=== PATIENT | male | born 1980 | race Two or more races ===

== ENCOUNTER 2021-02-01 11:01 | Emergency (ER) | payer OTHER, SELFPAY ==
--- NOTE | ~2021-02-01 | CT_ITS ---
EXAMINATION: CT ABDOMEN AND PELVIS WITH CONTRAST CLINICAL INFORMATION: Left lower quadrant pain, nausea, vomiting, diarrhea for 6 days. COMPARISON: None TECHNIQUE: Multidetector volumetric images were obtained from the superior aspect of the liver through the pubic symphysis following administration 85 mL of Omnipaque 350 intravenous contrast. Sagittal and coronal reformatted images were obtained on the technologist's workstation. Oral contrast: No This CT examination was performed using dose optimization techniques as appropriate, variously including the following: *Automated exposure control *Adjustment of mA and/or kV according to patient size (this includes techniques or standardized protocols for targeted exams where dose is matched to indication/reason for exam; i.e. extremities or head) *Use of iterative reconstruction technique DLP: 508 mGy-cm FINDINGS: LUNG BASES: The visualized lung bases are unremarkable. LIVER, GALLBLADDER, AND BILIARY TREE: Liver is normal in size and normal in attenuation. The liver surface is smooth. There is no intrahepatic ductal dilatation. There are 4 small hypodense lesions in the liver all under 1 cm and too small to characterize and likely tiny cysts. There are some grouped benign coarse calcifications in the left lobe segment 4A without associated mass or APRIL lesion. The gallbladder is unremarkable with no evidence of radiopaque gallstones, gallbladder wall thickening, or obvious pericholecystic inflammatory changes. PANCREAS: Unremarkable. SPLEEN: Unremarkable. ADRENAL GLANDS: The kidneys are normal in size and smooth in contour and enhance symmetrically. There is no hydroureter or perinephric stranding or visible calculi. There are likely parapelvic cysts within the left renal sinus which limits assessment for fullness left collecting system. No right hydronephrosis or caliectasis. KIDNEYS AND URETERS: The kidneys are normal in size, shape, and attenuation. No hydronephrosis, hydroureter, or calculi seen. No perinephric stranding. BLADDER: Unremarkable. GASTROINTESTINAL TRACT: There is no bowel obstruction or focal inflammatory changes in the bowel or mesentery. A small normal appendix is questionably visualized. There are no inflammatory changes around cecum or terminal ileum. There is no ascites or fluid collection. No pneumatosis or free air. ABDOMINAL WALL: No significant hernia is appreciated. LYMPH NODES: No lymphadenopathy. VASCULAR: Unremarkable. PELVIC VISCERA: Prostatic calcifications. Symmetric seminal vesicles. Pelvic side wall soft tissues unremarkable. OSSEOUS STRUCTURES: Unremarkable. CT/CT abdomen pelvis w con IMPRESSION: 1. No bowel obstruction or focal inflammatory changes in bowel or mesentery. 2. Probable diffuse parapelvic cysts left kidney. No hydroureter, calculi, or perinephric stranding (a KUB could be performed to confirm normal collecting system during the excretion of CT contrast). 3. Pancreas unremarkable. No cholelithiasis or ductal dilatation.
[2021-02-01 11:47] VITALS: BP 135/78; PULSE 86; RESP 16; TEMP 36.6; O2SAT 98; BMI 25.6
[2021-02-01 14:11] VITALS: RESP 16
[2021-02-01 14:25] LABS: Glucose Urine UA NEG (NEG); Leukocyte Esterase Urine NEG (NEG); Nitrite Urine NEG (NEG); Specific Gravity - Urine >= 1.030 (1.005-1.025); Urine Blood NEG (NEG); Urine Ketones NEG (NEG); Urine Protein NEG (NEG-TRACE)
[2021-02-01 14:26] LABS: Appearance Urine CLEAR; Color Urine YELLOW
[2021-02-01 14:31] LABS: Hematocrit 47.1 % (42-52); Hemoglobin 14.9 g/dl (14.0-18.0); Mean Corpuscular HGB Conc 31.6 g/dl (31.0-36.0); Mean Corpuscular Hemoglobin 27.2 pg (27.0-33.0); Mean Corpuscular Volume 85.9 fL (80-98); Mean Platelet Volume 13.4 fL (9.4-12.4); PLT CLUMP 1; Red Blood Count 5.48 X10*6/uL (4.60-5.80); Red Cell Distribution Width 12.2 % (11.0-16.0); WBC ABN SCTR FOR CBC 1
[2021-02-01] MEDS: 0.9 % Sodium Chloride 1,000 ML 999 ML IVCONT (14:44)
[2021-02-01 14:54] VITALS: BP 120/84; PULSE 66; RESP 16
[2021-02-01 14:59] LABS: Alanine Aminotransferase 19 U/L (0-40); Albumin Level 4.7 g/dL (3.5-5.0); Alkaline Phosphatase 54 U/L (39-117); Anion Gap 12 (12-20); Aspartate Amino Transferase 25 U/L (5-37); Bilirubin Direct 0.4 mg/dL (0.0-0.5); Bilirubin Total 1.2 mg/dL (0.0-1.0); Blood Urea Nitrogen 11 mg/dL (9-16); Calcium 9.7 mg/dL (8.4-10.2); Carbon Dioxide 28 mmol/L (22-29); Chloride 103 mmol/L (96-108); Creatinine Clr Calc Pharmacy 93.6; Estimated Glomerular Filt Rate > 60; Glucose Random 77 mg/dL (60-115); Potassium 4.1 mmol/L (3.3-5.1); Sodium 139 mmol/L (135-145); Total Protein 7.8 g/dL (6.5-8.0)
[2021-02-01 15:12] LABS: Lipase 83 U/L (8-78)
[2021-02-01 15:20] LABS: Band Neutrophils Percent 0 % (3-5); Basophils Percent Manual 1 % (0-1); Eosinophils Percent Manual 3 % (0-4); Large Platelet PRESENT; Lymphocytes Percent Manual 32 % (20-40); Monocytes Percent Manual 2 % (2-11); Neutrophils Percent Manual 62 % (45-73); Platelet Estimate NORMAL (NORMAL); Platelet Morphology Comment NOTED; RBC Morphology NORMAL
[2021-02-01 15:21] LABS: Basophils Abs Manual 0.1 X10*3/uL (0.0-0.3); Eosinophils Absolute Manual 0.4 X10*3/UL (0.0-0.8); Lymphocytes Absolute Manual 3.8 X10*3/uL (0.6-4.8); Monocytes Absolute Manual 0.2 X10*3/uL (0.0-1.2); Neutrophils Absolute Manual 7.3 X10*3/uL (2.2-7.9); Platelet Count 181 X10*3/uL (160-400); White Blood Count 11.8 X10*3/uL (4.8-10.8)
--- NOTE | 2021-02-01 15:45 | ED.ABDPAIN ---
HPI - Abdominal Pain General Chief Complaint: Abdominal Pain Stated Complaint: n/v Time Seen by Provider: 02/01/21 14:05 Source: patient Mode of arrival: ambulatory Limitations: no limitations History of Present Illness HPI narrative: 40-year-old male with a past medical history of seizures and thyroid cancer status post thyroidectomy presenting to the ED with complaints of 6 days of intermittent diffuse abdominal pain with associated nausea/vomiting and loose stools. Patient also reports feeling tired, fatigue and subjective fevers. Denies any measured fevers, dizziness, lightheadedness, neck pain/stiffness, bloody or black emesis, chest pain, shortness of breath, dyspnea on exertion, orthopnea, palpitations, back pain, dysuria, hematuria, abnormal penile discharge, black or bloody stools, constipation, recent travel, bad food exposure or sick contacts. Patient denies recent surgery, antibiotic usage or injury. Patient denies any other symptoms complaints or concerns at this time. MD elicited complaint: abdominal pain Pertinent past history: none Onset (ago): day(s) (Intermittently for the past 6 days worse today) Pain Consistency: intermittent Location: diffuse Severity: moderate Radiation: none Migration to: no migration Exacerbating factors: eating Relieving factors: nothing Associated symptoms: nausea, vomiting, diarrhea, fever and chills Related Data Previous Rx's Medication Instructions Recorded naproxen 500 mg PO BID PRN #10 tab 02/01/21 ondansetron HCl [Zofran] 4 mg PO Q8H PRN #14 tab 02/01/21 oxycodone 5 mg PO BID PRN #10 tab 02/01/21 Allergies Allergy/AdvReac Type Severity Reaction Status Date / Time No Known Allergies Allergy Unverified 05/11/20 17:04 Review of Systems Review of Systems Constitutional : Positive subjective fevers/fatigue/malaise, No Weight loss, No Chills, No Night Sweats ENT/Mouth: No ear pain, No sore throat, No Difficulty swallowing Cardiovascular : No Chest Pain, No SOB, No Dyspnea on Exertion, No Orthopnea, NoEdema, No Palpitations Respiratory : No Cough, No Sputum, No Wheezing, No Dyspnea Gastrointestinal : Positive nausea/vomiting/abdominal pain/diarrhea, No blood streaked emesis, No coffee-ground emesis, No gross hematemesis, No blood streak stool, No gross hematochezia, No Melena Genitourinary : No irregular bleeding, No Dysuria, No Urinary Frequency, No Hematuria,No Urinary Incontinence, No Urgency, No Flank Pain Musculoskeletal : No joint pain, No Myalgias, No Joint Swelling Skin : No Skin Lesions, No rash Neuro : No Weakness, No Numbness, No Paresthesias, No Loss of Consciousness, NoDizziness, No Headache Psych : No Social Issues, Heme/Lymph: No Bruising, No Bleeding,No Lymphadenopathy Endocrine : No Polyuria, No Polydipsia, No Temperature Intolerance Yes all other systems are reviewed and are negative Physical Exam Vital Signs: Vital Signs: Last Vital Signs Temp 97.8 F 02/01/21 11:47 Pulse 66 02/01/21 14:54 Resp 16 02/01/21 14:54 BP 120/84 02/01/21 14:54 Pulse Ox 98 02/01/21 11:47 Body Mass Index 25.6 vital signs have been reviewed as normal and appeared to be correct. Blood pressure normal. Heart rate normal. Respiration rate normal. Temperature normal. Oxygen saturation normal. Appearance: Alert. Oriented X3. No acute distress. Head: Normal external exam. Normocephalic. Eyes: PERRLA. EOMI. Conjunctiva and sclera normal. Eyelids normal. ENT: Pharynx normal. Uvula midline. Moist mucous membranes. Neck: Normal inspection. Neck supple. FROM. No adenopathy. No meningeal signs. CVS: Normal heart rate and rhythm. Heart sound normal. No murmurs noted. Pulses normal throughout. Respiratory: No respiratory distress. Painless inspiration. Breath sounds normal. No wheezes/rales/rhonchi noted. Chest nontender. No accessory muscle usage noted or decreased air movement noted. Abdomen: Soft and mild tenderness diffusely with guarding. Nondistended. No rigidity. Bowel sounds normal in all 4 quadrants. No distention noted. No organomegaly noted. No visible injury noted. No rebound tenderness. Negative Rovsing sign. Negative obturator's sign. Negative psoas sign. Negative Thrasher sign. Back: No CVA tenderness. Full range of motion noted. Skin: Skin warm and dry. Normal skin color. Normal skin turgor. No rashes/lesions/lacerations noted. Extremities: Extremities exhibit normal range of motion. Extremities nontender. Neuro: Oriented X 3. No motor deficit. No sensory deficit. Reflexes normal. Normal steady gait. Course Course Course Narrative: 14:25pm - 40-year-old male with a past medical history of seizures and thyroid cancer status post thyroidectomy presenting to the ED with complaints of 6 days of intermittent diffuse abdominal pain with associated nausea/vomiting and loose stools. Patient also reports feeling tired, fatigue and subjective fevers. Plan: Labs, CT scan of abdomen and pelvis with IV contrast, UA, COVID/RSV/flu swab. Provide a L of IV fluids and re-evaluate. Reevaluation(s) Reevaluation #1: - white blood cell count 04584. Total bilirubin 1.2. Lipase 83. All other labs within normal limits. UA within normal limits no evidence of UTI. COVID/RSV/flu negative. CT scan of abdomen and pelvis with IV contrast revealed multiple liver cysts and renal cyst otherwise no other acute processes were noted. Therefore I printed out the CT scan results and gave a copy to the patient explained to him that he needs to follow up with GI and Renal for his cyst and to follow up if any new or worsening symptoms. Patient understands agrees with this plan. Time: 17:11 [facility] - Abdominal Pain Medical Records Attestation: I reviewed the patient's medical records. Lab Data Attestation: I reviewed the patient's lab results. Result diagrams: 02/01/21 14:06 02/01/21 14:06 Labs: Lab Results 02/01/21 02/01/21 02/01/21 Range/Units 14:06 14:06 14:15 WBC 11.8 H (4.8-10.8) X10*3/uL RBC 5.48 (4.60-5.80) X10*6/uL Hgb 14.9 (14.0-18.0) g/dl Hct 47.1 (42-52) % MCV 85.9 (80-98) fL MCH 27.2 (27.0-33.0) pg MCHC 31.6 (31.0-36.0) g/dl RDW 12.2 (11.0-16.0) % Plt Count 181 (160-400) X10*3/uL MPV 13.4 H (9.4-12.4) fL Immature Gran % (Auto) Cancelled Neut % (Auto) Cancelled Lymph % (Auto) Cancelled [place] % (Auto) Cancelled Eos % (Auto) Cancelled Baso % (Auto) Cancelled Lymph # (Auto) Cancelled [place] # (Auto) Cancelled Eos # (Auto) Cancelled Baso # (Auto) Cancelled Abs Immat Gran (auto) Cancelled Absolute Neuts (auto) Cancelled Absolute Nucleated RBC 0.000 (0.0-0.012) X10*3/uL Nucleated RBC % (auto) 0.0 (0.0-0.2) /100WBC Neutrophils % (Manual) 62 (45-73) % Band Neutrophils % 0 L (3-5) % Lymphocytes % (Manual) 32 (20-40) % Monocytes % (Manual) 2 (2-11) % Eosinophils % (Manual) 3 (0-4) % Basophils % (Manual) 1 (0-1) % Abs Neuts (Manual) 7.3 (2.2-7.9) X10*3/uL Lymphocytes # (Manual) 3.8 (0.6-4.8) X10*3/uL Monocytes # (Manual) 0.2 (0.0-1.2) X10*3/uL Eosinophils # (Manual) 0.4 (0.0-0.8) X10*3/UL Basophils # (Manual) 0.1 (0.0-0.3) X10*3/uL Platelet Estimate NORMAL (NORMAL) Large Platelets PRESENT Plt Morphology Comment NOTED RBC Morphology NORMAL Sodium 139 (135-145) mmol/L Potassium 4.1 (3.3-5.1) mmol/L Chloride 103 (96-108) mmol/L Carbon Dioxide 28 (22-29) mmol/L Anion Gap 12 (12-20) BUN 11 (9-16) mg/dL Creatinine 0.93 (0.5-1.4) mg/dL Estim Creat Clear Calc 93.6 Estimated GFR > 60 Random Glucose 77 (60-115) mg/dL Calcium 9.7 (8.4-10.2) mg/dL Total Bilirubin 1.2 H (0.0-1.0) mg/dL Direct Bilirubin 0.4 (0.0-0.5) mg/dL AST 25 (5-37) U/L ALT 19 (0-40) U/L Alkaline Phosphatase 54 (39-117) U/L Total Protein 7.8 (6.5-8.0) g/dL Albumin 4.7 (3.5-5.0) g/dL Lipase 83 H (8-78) U/L Urine Color YELLOW Urine Appearance CLEAR Urine pH 6.0 (5.0-8.0) Ur Specific [place] >= 1.030 H (1.005-1.025) Urine Protein NEG (NEG-TRACE) MG/DL Urine Glucose (UA) NEG (NEG) MG/DL Urine Ketones NEG (NEG) MG/DL Urine Blood NEG (NEG) Urine Nitrite NEG (NEG) Ur Leukocyte Esterase NEG (NEG) Coronavirus (PCR) (Negative) Influenza Type A (PCR) (Negative) Influenza Type B (PCR) (Negative) RSV RNA Qual (PCR) (Negative) 02/01/21 Range/Units 14:43 WBC (4.8-10.8) X10*3/uL RBC (4.60-5.80) X10*6/uL Hgb (14.0-18.0) g/dl Hct (42-52) % MCV (80-98) fL MCH (27.0-33.0) pg MCHC (31.0-36.0) g/dl RDW (11.0-16.0) % Plt Count (160-400) X10*3/uL MPV (9.4-12.4) fL Immature Gran % (Auto) Neut % (Auto) Lymph % (Auto) [place] % (Auto) Eos % (Auto) Baso % (Auto) Lymph # (Auto) [place] # (Auto) Eos # (Auto) Baso # (Auto) Abs Immat Gran (auto) Absolute Neuts (auto) Absolute Nucleated RBC (0.0-0.012) X10*3/uL Nucleated RBC % (auto) (0.0-0.2) /100WBC Neutrophils % (Manual) (45-73) % Band Neutrophils % (3-5) % Lymphocytes % (Manual) (20-40) % Monocytes % (Manual) (2-11) % Eosinophils % (Manual) (0-4) % Basophils % (Manual) (0-1) % Abs Neuts (Manual) (2.2-7.9) X10*3/uL Lymphocytes # (Manual) (0.6-4.8) X10*3/uL Monocytes # (Manual) (0.0-1.2) X10*3/uL Eosinophils # (Manual) (0.0-0.8) X10*3/UL Basophils # (Manual) (0.0-0.3) X10*3/uL Platelet Estimate (NORMAL) Large Platelets Plt Morphology Comment RBC Morphology Sodium (135-145) mmol/L Potassium (3.3-5.1) mmol/L Chloride (96-108) mmol/L Carbon Dioxide (22-29) mmol/L Anion Gap (12-20) BUN (9-16) mg/dL Creatinine (0.5-1.4) mg/dL Estim Creat Clear Calc Estimated GFR Random Glucose (60-115) mg/dL Calcium (8.4-10.2) mg/dL Total Bilirubin (0.0-1.0) mg/dL Direct Bilirubin (0.0-0.5) mg/dL AST (5-37) U/L ALT (0-40) U/L Alkaline Phosphatase (39-117) U/L Total Protein (6.5-8.0) g/dL Albumin (3.5-5.0) g/dL Lipase (8-78) U/L Urine Color Urine Appearance Urine pH (5.0-8.0) Ur Specific [place] (1.005-1.025) Urine Protein (NEG-TRACE) MG/DL Urine Glucose (UA) (NEG) MG/DL Urine Ketones (NEG) MG/DL Urine Blood (NEG) Urine Nitrite (NEG) Ur Leukocyte Esterase (NEG) Coronavirus (PCR) NEGATIVE (Negative) Influenza Type A (PCR) NEGATIVE (Negative) Influenza Type B (PCR) NEGATIVE (Negative) RSV RNA Qual (PCR) NEGATIVE (Negative) Imaging Data CT scan of abdomen and pelvis with IV contrast: Attestation: I personally reviewed and interpreted this imaging study as follows: Radiologist's impression: FINDINGS: LUNG BASES: The visualized lung bases are unremarkable. LIVER, GALLBLADDER, AND BILIARY TREE: Liver is normal in size and normal in attenuation. The liver surface is smooth. There is no intrahepatic ductal dilatation. There are 4 small hypodense lesions in the liver all under 1 cm and too small to characterize and likely tiny cysts. There are some grouped benign coarse calcifications in the left lobe segment 4A without associated mass or APRIL lesion. The gallbladder is unremarkable with no evidence of radiopaque gallstones, gallbladder wall thickening, or obvious pericholecystic inflammatory changes. PANCREAS: Unremarkable. SPLEEN: Unremarkable. ADRENAL GLANDS: The kidneys are normal in size and smooth in contour and enhance symmetrically. There is no hydroureter or perinephric stranding or visible calculi. There are likely parapelvic cysts within the left renal sinus which limits assessment for fullness left collecting system. No right hydronephrosis or caliectasis. KIDNEYS AND URETERS: The kidneys are normal in size, shape, and attenuation. No hydronephrosis, hydroureter, or calculi seen. No perinephric stranding. BLADDER: Unremarkable. GASTROINTESTINAL TRACT: There is no bowel obstruction or focal inflammatory changes in the bowel or mesentery. A small normal appendix is questionably visualized. There are no inflammatory changes around cecum or terminal ileum. There is no ascites or fluid collection. No pneumatosis or free air. ABDOMINAL WALL: No significant hernia is appreciated. LYMPH NODES: No lymphadenopathy. VASCULAR: Unremarkable. PELVIC VISCERA: Prostatic calcifications. Symmetric seminal vesicles. Pelvic side wall soft tissues unremarkable. OSSEOUS STRUCTURES: Unremarkable. CT/CT abdomen pelvis w con IMPRESSION: 1. No bowel obstruction or focal inflammatory changes in bowel or mesentery. 2. Probable diffuse parapelvic cysts left kidney. No hydroureter, calculi, or perinephric stranding (a KUB could be performed to confirm normal collecting system during the excretion of CT contrast). 3. Pancreas unremarkable. No cholelithiasis or ductal dilatation. Discharge Plan Discharge Clinical Impression: Abdominal pain, Benign liver cyst, Parapelvic renal cyst Patient Disposition: Home, Self-Care Instructions: Abdominal Pain (ED), Cyst (ED), Kidney Cyst (ED) Prescriptions: New ondansetron HCl [Zofran] 4 mg tablet 4 mg PO Q8H PRN (Reason: nausea and vomiting) Qty: 14 RF: 0 naproxen 500 mg tablet 500 mg PO BID PRN (Reason: pain) Qty: 10 RF: 0 oxycodone 5 mg tablet 5 mg PO BID PRN (Reason: pain) Qty: 10 RF: 0 Referrals: Michael Carlin MD [Physician] - 2 days Erum Naranjo MD [Primary Care Provider] - 2 days Lakhwinder Huerta MD [Physician] - 2 days Lakhwinder Huerta MD [Physician] - 2 days Stand Alone Forms: Work/School Release Print Language: Panamanian [facility] Past Medical History Attestation statement: The following information was validated with the patient. Medical History Seizure Thyroid cancer Surgical History H/O thyroidectomy Social History Social History Alcohol intake: never Patient Tobacco Use Status: Current everyday Tobacco user Use of substances other than those prescribed or required for medical reasons: No Advance Directives: No Advance Directives Information Provided: No
[2021-02-01 15:48] LABS: Influenza A PCR NEGATIVE (Negative); Influenza B PCR NEGATIVE (Negative); Resp Syncy Virus RNA Qual PCR NEGATIVE (Negative); SARS COV2 PCR INHOUSE NEGATIVE (Negative)
[2021-02-01] MEDS: iohexoL 350 MG/ML 100 ML INFUS..BTL IV (15:51)
== END 2021-02-01 17:18 | disposition home or self-care (01) ==
PROVIDERS: Physician Assistant Medical; Emergency Provider Emergency Medicine Emergency Medical Services; PCP Internal Medicine Pulmonary Disease
DX: R10.9 Unspecified abdominal pain (principal); K76.89 Other specified diseases of liver; Q61.01 Congenital single renal cyst; Z20.822 Contact with and (suspected) exposure to COVID-19; R11.2 Nausea with vomiting, unspecified; F17.210 Nicotine dependence, cigarettes, uncomplicated; Z85.850 Personal history of malignant neoplasm of thyroid
CPT/HCPCS: 0241U; 36415; 74177; 80048; 80076; 81003; 83690; 85007; 85027; 96360; 99284; Q9967

== ENCOUNTER 2022-05-10 08:33 | Emergency (ER) | payer MEDICAID, SELFPAY ==
[2022-05-10 08:35] VITALS: BP 133/81; PULSE 115; RESP 19; TEMP 37.4; O2SAT 98; BMI 26.6
[2022-05-10 08:51] LABS: COVID-19 Test Positive (Negative); IDNOW Serial# 16C4AD1C
--- NOTE | 2022-05-10 09:51 | ED_ITS ---
HPI - Fever General Chief Complaint: Fever Stated Complaint: covid like symptoms/exposure to covid Time Seen by Provider: 05/10/22 09:38 Source: patient Mode of arrival: ambulatory Limitations: no limitations History of Present Illness HPI Narrative: 41-year-old male presenting to the ER with complaints of subjective fevers, chills, fatigue, malaise, nasal congestion/rhinorrhea, itchy throat, loss of taste and smell since yesterday worse today. Reports positive COVID exposure. Denies any measured fevers, dizziness, headaches, neck pain/stiffness, trouble swallowing or breathing, ear pain, cough, sputum production, nausea/vomiting/diarrhea constipation, black or bloody stools, rashes, recent travel, dysuria or any other symptoms complaints or concerns at this time. MD elicited complaint: other (Subjective fevers, loss of taste and COVID exposure) Onset (ago): day(s) (Since yesterday) Context: sick contacts Associated symptoms: chills, myalgias, rhinorrhea, nasal congestion and sore throat Treatments prior to arrival fever: none Related Data Previous Rx's Medication Instructions Recorded naproxen 500 mg tablet 500 mg PO BID PRN pain #10 tabs 02/01/21 ondansetron HCl 4 mg tablet 4 mg PO Q8H PRN nausea and 02/01/21 (Zofran) vomiting #14 tabs oxycodone 5 mg tablet 5 mg PO BID PRN pain #10 tabs 02/01/21 cyclobenzaprine 10 mg tablet 10 mg PO Q8H #14 tabs 05/10/22 ibuprofen 800 mg tablet 800 mg PO Q8H PRN pain #14 tabs 05/10/22 Allergies Allergy/AdvReac Type Severity Reaction Status Date / Time No Known Allergies Allergy Unverified 05/11/20 17:04 Review of Systems Review of Systems: Constitutional : + subjective fevers/chills/fatigue/malaise, No Weight loss, No Night Sweats ENT/Mouth : + nasal congestion/rhinorrhea with a itchy throat loss of taste and smell, No Hearing loss, No Ear Pain, No Sinus Pain, No Hoarseness, No Swallowing Difficulty Eyes: No Eye Pain, No Swelling, No Redness, No Foreign Body, No Discharge, No Vision Changes Cardiovascular : No Chest Pain, No SOB, No Dyspnea on Exertion, No Orthopnea, No Edema, No Palpitations Respiratory : No Cough, No Sputum, No Wheezing, No Smoke Exposure, No Dyspnea Gastrointestinal : No Nausea, No Vomiting, No Diarrhea, No Constipation, No abdominal Pain, No Hematochezia, No Melena Genitourinary : no irregular bleeding, No Dysuria, No Urinary Frequency, No Hematuria, No Urinary Incontinence, No Urgency, No Flank Pain, No Urinary Flow Changes, No Hesitancy Musculoskeletal : No joint pain, + Myalgias, No Joint Swelling Skin : No Skin Lesions, No rash Neuro : No Weakness, No Numbness, No Paresthesias, No Loss of Consciousness, No Dizziness, No Headache Psych : No Anxiety/Panic, No Depression, No SI/HI/AH/VH, No Social Issues, Heme/Lymph: No Bruising, No Bleeding,No Lymphadenopathy Endocrine : No Polyuria, No Polydipsia, No Temperature Intolerance Yes all other systems are reviewed and are negative [facility] Past Medical History Attestation statement: The following information was validated with the patient. Source: old records reviewed and nursing notes reviewed Medical History Seizure Thyroid cancer Surgical History H/O thyroidectomy Social History Social History Alcohol intake: never Patient Tobacco Use Status: Current everyday Tobacco user Advance Directives: No Advance Directives Information Provided: Yes Physical Exam Vital Signs: Vital Signs: Last Vital Signs Temp 99.4 F 05/10/22 08:35 Pulse 115 H 05/10/22 08:35 Resp 19 05/10/22 08:35 BP 133/81 05/10/22 08:35 Pulse Ox 98 05/10/22 08:35 O2 Del Method 05/10/22 08:35 BMI result Body Mass Index 26.6 vital signs have been reviewed as normal and appeared to be correct. Blood pressure normal. Heart rate 115. Respiration rate normal. Temperature normal. Oxygen saturation normal. Appearance: Alert. Oriented X3. No acute distress. Head: Normal external exam. Normocephalic. Atraumatic. Eyes: PERRLA. EOMI. Conjunctiva and sclera normal. Eyelids normal. ENT: EAC normal. TM's Normal. Pharynx normal. Uvula midline. Moist mucous membranes. No lesions/ulcerations or masses noted on the tongue. Normal voice. No trismus noted. No drooling noted. No muffled voice noted. Neck: Normal inspection. Neck supple. FROM. No adenopathy. Thyroid Normal. No meningeal signs. No neck mass noted. CVS: Normal heart rate and rhythm. Heart sound normal. Pulses normal throughout. No murmurs/rales/gallops. Respiratory: No respiratory distress. Painless inspiration. Breath sounds normal. No wheezes/rales/rhonchi noted. Chest nontender. No accessory muscle usage noted or decreased air movement noted. Abdomen: Soft and nontender. Nondistended. No guarding. No rigidity. Bowel sounds normal in all 4 quadrants. No distention noted. No organomegaly noted. Back: Full range of motion noted. Skin: Skin warm and dry. Normal skin color. Normal skin turgor. No rashes/lesions/lacerations noted. Extremities:Extremities exhibit normal range of motion and nontender. Neuro: Oriented X 3. No motor deficit. No sensory deficit. Reflexes normal. Normal steady gait. No focal neuro deficits noted. CN's II-XII intact bilaterally? Vascular: + radial pulses/+ 2 distal pedal pulses/+2 dorsalis pedis b/l. Normal cap refill. No cyanosis noted to upper extremity nails and lower extremity toes nails. Course Course Course Narrative: Patient positive for COVID. No additional labs or imaging indicated at this time. Will DC home with symptomatic treatment instructions to self isolate per CDC guidelines and to return if any new or worsening symptoms. Patient understands agrees with this plan. MDM - Fever Medical Records Attestation: I reviewed the patient's medical records. Lab Data Attestation: I reviewed the patient's lab results. Labs: Lab Results 05/10/22 Range/Units 08:40 COVID-19 ([facility]) Positive A (Negative) COVID-19 Clin Com See Note Discharge Plan Discharge Clinical Impression: COVID-19 Patient Disposition: Home, Self-Care Instructions: COVID-19 (Coronavirus Disease 2019) (ED) Prescriptions: New cyclobenzaprine 10 mg tablet 10 mg PO Q8H Qty: 14 0RF ibuprofen 800 mg tablet 800 mg PO Q8H PRN (Reason: pain) Qty: 14 0RF No Action ondansetron HCl [Zofran] 4 mg tablet 4 mg PO Q8H PRN (Reason: nausea and vomiting) Qty: 14 0RF naproxen 500 mg tablet 500 mg PO BID PRN (Reason: pain) Qty: 10 0RF oxycodone 5 mg tablet 5 mg PO BID PRN (Reason: pain) Qty: 10 0RF Referrals: Physician,Unknown J [Primary Care Provider] - 5 days (your pcp) Stand Alone Forms: Work/School Release Print Language: Czech
== END 2022-05-10 10:08 | disposition home or self-care (01) ==
PROVIDERS: Emergency Provider Emergency Medicine Emergency Medical Services
DX: U07.1 COVID-19 (principal); F17.200 Nicotine dependence, unspecified, uncomplicated
CPT/HCPCS: 87635; 99283

== ENCOUNTER 2022-05-15 09:28 | Outpatient (REF) | payer MEDICAID, SELFPAY ==
[2022-05-15 09:54] LABS: COVID-19 Test Positive (Negative); IDNOW Serial# 16C4AD1C
== END 2022-05-15 09:29 | disposition home or self-care (01) ==
LOC: HO.LAB 09:28
PROVIDERS: Visit Provider Internal Medicine
DX: Z20.822 Contact with and (suspected) exposure to COVID-19 (principal)
CPT/HCPCS: 87635; C9803

== ENCOUNTER 2022-08-12 10:29 | Outpatient (REF) | payer MEDICAID, SELFPAY ==
[2022-08-12 11:21] LABS: COVID-19 Test Negative (Negative); IDNOW Serial# 9DB6401D
== END 2022-08-12 10:30 | disposition home or self-care (01) ==
LOC: HO.LAB 10:29
PROVIDERS: Visit Provider Internal Medicine
DX: Z20.822 Contact with and (suspected) exposure to COVID-19 (principal)
CPT/HCPCS: 87635; C9803

== ENCOUNTER 2022-10-17 08:53 | Outpatient (REF) | payer MEDICAID, SELFPAY ==
[2022-10-17 09:22] LABS: COVID-19 Test Negative (Negative); IDNOW Serial# 16C4AD1C
== END 2022-10-17 08:54 | disposition home or self-care (01) ==
LOC: HO.LAB 08:53
PROVIDERS: Visit Provider Internal Medicine
DX: Z20.822 Contact with and (suspected) exposure to COVID-19 (principal)
CPT/HCPCS: 87635; C9803

== ENCOUNTER 2023-01-29 18:00 | Emergency (ER) | payer MEDICAID, SELFPAY ==
[2023-01-29] VITALS (9 sets, daily range): BP systolic 128–143; BP diastolic 88–103; PULSE 74–110; RESP 16–20; TEMP 36.6–36.9; O2SAT 97–99; BMI 26.6
--- NOTE | ~2023-01-29 | XR_ITS ---
EXAMINATION: CHEST 2 VIEWS CLINICAL INFORMATION: pain. COMPARISON: No recent pertinent prior studies are available for comparison. TECHNIQUE: PA and lateral views of the chest obtained. FINDINGS: The lungs are well expanded. No focal infiltrate, effusion, edema, or pneumothorax. Cardiac and mediastinal silhouettes are within normal limits for technique. No acute bony abnormality seen XR/XR chest 2V IMPRESSION: No evidence of acute disease
--- NOTE | 2023-01-29 18:09 | ECG_ITS ---
Test Reason : CP Blood Pressure : / mmHG Vent. Rate : 093 BPM Atrial Rate : 093 BPM P-R Int : 140 ms QRS Dur : 094 ms QT Int : 338 ms P-R-T Axes : 053 012 023 degrees QTc Int : 420 ms Normal sinus rhythm with sinus arrhythmia Incomplete right bundle branch block Borderline ECG When compared with ECG of 25-JUN-2012 18:15, No significant change was found Referred By: Almas Busch Electronically Signed By:Jayme Romero
--- NOTE | 2023-01-29 18:09 | ED.GENADULT ---
HPI - General Adult General Chief complaint: Syncope Stated complaint: passes out after waking up, chest pain, L hand num Time Seen by Provider: 01/29/23 20:17 Source: patient Mode of arrival: ambulatory History of Present Illness HPI narrative: 42-year-old male who presents with history of seizures for which he takes Keppra 500 mg and states this morning he experienced what he describes as an aura where he felt tingling in his left upper extremity and saw some dots and then went and laid down on his bed and patient states that he passed out. He does endorse that when he woke he felt a little drowsy and states that it happened again later on that day. He denies any history of IVDA and denies any drugs at all. Patient states that he has continued to take his seizure medication but also endorses that he is coming up on his 1 year anniversary for the of his son. He feels that this may be contributing to his underlying symptoms. Related Data Previous Rx's Medication Instructions Recorded naproxen 500 mg tablet 500 mg PO BID PRN pain #10 tabs 02/01/21 ondansetron HCl 4 mg tablet 4 mg PO Q8H PRN nausea and 02/01/21 (Zofran) vomiting #14 tabs oxycodone 5 mg tablet 5 mg PO BID PRN pain #10 tabs 02/01/21 cyclobenzaprine 10 mg tablet 10 mg PO Q8H #14 tabs 05/10/22 ibuprofen 800 mg tablet 800 mg PO Q8H PRN pain #14 tabs 05/10/22 levetiracetam 250 mg tablet 250 mg PO BID #60 tabs 01/29/23 (Keppra) Allergies Allergy/AdvReac Type Severity Reaction Status Date / Time No Known Allergies Allergy Verified 01/29/23 18:08 Review of Systems Review of Systems: Pertinent positives and negatives as stated in HPI [facility] Past Medical History Source: nursing notes reviewed Medical History Seizure Thyroid cancer Surgical History H/O thyroidectomy Social History Social History Alcohol intake: never Patient Tobacco Use Status: Current everyday Tobacco user Smoked in Last 30 Days: No Use of substances other than those prescribed or required for medical reasons: No Advance Directives: No Advance Directives Information Provided: Yes Physical Exam ED Vital Signs: Vital Signs - 24 hr 01/29/23 18:08 01/29/23 20:37 01/29/23 20:45 Temperature 98 F 98.5 F Pulse Rate 110 H 81 81 Respiratory Rate 19 20 Blood Pressure 143/103 H 128/88 128/88 Pulse Oximetry 98 97 Oxygen Delivery Method Room Air Room Air 01/29/23 20:47 01/29/23 20:48 01/29/23 21:16 Temperature Pulse Rate 79 85 Respiratory Rate Blood Pressure 133/91 H 132/96 H Pulse Oximetry 99 Oxygen Delivery Method Room Air BMI result Body Mass Index 26.6 VITAL SIGNS: Reviewed. GENERAL: Well developed, well nourished, in no acute distress. HEAD: Normocephalic/atraumatic EYES: PERRLA, EOMI EARS: Ext canals without abnormality NOSE: Nares patent bilateral OROPHARYNX: no oral lesions noted, posterior pharynx clear LUNGS: Normal breath sounds. No adventitious sounds or accessory muscle use. SpO2<99> CARDIOVASCULAR: Regular rate and rhythm without noted murmurs ABDOMEN: Soft, non-tender, non-distended with bowel sounds. MUSCULOSKELETAL: No tenderness, deformities, or effusions noted on gross inspection. EXTREMITIES: No cyanosis, clubbing or edema. SKIN: Inspection of the skin reveals no rashes NEUROLOGIC: Alert and oriented x 4. Strength and sensation to light touch were grossly intact x 4. Course Course Course Narrative: 42-year-old male presents for evaluation of syncope. Patient reports that each day for the last 3 mornings he would wake up have coffee and smoke a cigarette. He states that he passed out every day for the last 3 days. Patient reports the seizure disorder which is maintained on Keppra and has not had a seizure in years. Plan for labs, EKG, old chest x-ray Medical Decision Making Medical Decision Making MDM Narrative: 42-year-old male with history and clinical presentation after review of all investigations as possible partial seizure, although suspect may be secondary to emotional impact of and reversed 3 of son's , but on review of UDS may also be secondary to cocaine use. Patient was strongly discouraged from continue the use of cocaine and encouraged to continue the use of his Keppra, Keppra level has been sent but will be pending and also provided a referral for the patient to follow-up with Dr. Escobedo. There are no focal deficits, there is what is suspected to be a stress leukocytosis as there is no source, patient is afebrile and otherwise appears well. He is discharged with follow-up Differential Diagnosis Please see the discussion above Lab Data Please see the discussion above 01/29/23 18:37 01/29/23 18:37 Labs: Lab Results 01/29/23 01/29/23 01/29/23 Range/Units 18:37 18:37 18:37 WBC 13.1 H (4.8-10.8) X10*3/uL RBC 5.27 (4.60-5.80) X10*6/uL Hgb 14.7 (14.0-18.0) g/dl Hct 44.9 (42.0-52.0) % MCV 85.2 (80.0-98.0) fL MCH 27.9 (27.0-33.0) pg MCHC 32.7 (31.0-36.0) g/dl RDW 12.4 (11.0-16.0) % Plt Count 216 (160-400) X10*3/uL MPV 12.3 (9.4-12.4) fL Immature Gran % (Auto) 0.4 (0.0-0.4) % Neut % (Auto) 68.3 (45-73) % Lymph % (Auto) 23.6 (20-40) % [place] % (Auto) 5.9 (2-11) % Eos % (Auto) 1.4 (0-4) % Baso % (Auto) 0.4 (0-2) % Lymph # (Auto) 3.1 (1.2-4.9) X10*3/uL [place] # (Auto) 0.8 (0.1-1.2) X10*3/uL Eos # (Auto) 0.2 (0.0-0.4) X10*3/uL Baso # (Auto) 0.1 (0.0-0.2) X10*3/uL Abs Immat Gran (auto) 0.05 H (0.00-0.03) X10*3/uL Absolute Neuts (auto) 9.0 H (2.0-8.3) x10*3/uL Absolute Nucleated RBC 0.000 (0.0-0.012) X10*3/uL Nucleated RBC % (auto) 0.0 (0.0-0.2) /100WBC PT (10.0-13.1) SEC INR (0.9-1.1) APTT (26.0-36.4) SEC Sodium 140 (135-145) mmol/L Potassium 3.8 (3.3-5.1) mmol/L Chloride 103 (96-108) mmol/L Carbon Dioxide 26 (22-29) mmol/L Anion Gap 15 (12-20) BUN 12 (9-16) mg/dL Creatinine 1.01 (0.5-1.4) mg/dL Estim Creat Clear Calc 78.2 Estimated GFR > 60 Random Glucose 110 (60-115) mg/dL Calcium 9.9 (8.4-10.2) mg/dL Magnesium 2.0 (1.6-2.6) mg/dL Total Bilirubin 0.8 (0.0-1.0) mg/dL AST 23 (5-37) U/L ALT 22 (0-40) U/L Alkaline Phosphatase 58 (39-117) U/L Troponin I High Sens < 2.7 (<3.5-35.0) ng/L Total Protein 7.8 (6.5-8.0) g/dL Albumin 4.7 (3.5-5.0) g/dL Urine Color Urine Appearance Urine pH (5.0-9.0) Ur Specific [place] (1.005-1.025) Urine Protein (Neg-Trace) mg/dL Urine Glucose (UA) (Negative) mg/dL Urine Ketones (Negative) mg/dL Urine Blood (Negative) Urine Nitrite (Negative) Ur Leukocyte Esterase (Negative) Urine RBC (0-2) /HPF Urine WBC (0-5) /HPF Ur Squamous Epith Cells (0-2) /HPF Urine Bacteria (None Seen) Hyaline Casts (0-2) /LPF Urine Opiates Screen (Not Detect) Urine Fentanyl Screen (Not Detect) Ur Barbiturates Screen (Not Detect) Ur Phencyclidine Scrn (Not Detect) Ur Amphetamines Screen (Not Detect) U Benzodiazepines Scrn (Not Detect) Urine Cocaine Screen (Not Detect) U Marijuana (THC) Screen (Not Detect) 01/29/23 01/29/23 01/29/23 Range/Units 18:37 22:26 22:26 WBC (4.8-10.8) X10*3/uL RBC (4.60-5.80) X10*6/uL Hgb (14.0-18.0) g/dl Hct (42.0-52.0) % MCV (80.0-98.0) fL MCH (27.0-33.0) pg MCHC (31.0-36.0) g/dl RDW (11.0-16.0) % Plt Count (160-400) X10*3/uL MPV (9.4-12.4) fL Immature Gran % (Auto) (0.0-0.4) % Neut % (Auto) (45-73) % Lymph % (Auto) (20-40) % [place] % (Auto) (2-11) % Eos % (Auto) (0-4) % Baso % (Auto) (0-2) % Lymph # (Auto) (1.2-4.9) X10*3/uL [place] # (Auto) (0.1-1.2) X10*3/uL Eos # (Auto) (0.0-0.4) X10*3/uL Baso # (Auto) (0.0-0.2) X10*3/uL Abs Immat Gran (auto) (0.00-0.03) X10*3/uL Absolute Neuts (auto) (2.0-8.3) x10*3/uL Absolute Nucleated RBC (0.0-0.012) X10*3/uL Nucleated RBC % (auto) (0.0-0.2) /100WBC PT 11.0 (10.0-13.1) SEC INR 1.0 (0.9-1.1) APTT 40.5 H (26.0-36.4) SEC Sodium (135-145) mmol/L Potassium (3.3-5.1) mmol/L Chloride (96-108) mmol/L Carbon Dioxide (22-29) mmol/L Anion Gap (12-20) BUN (9-16) mg/dL Creatinine (0.5-1.4) mg/dL Estim Creat Clear Calc Estimated GFR Random Glucose (60-115) mg/dL Calcium (8.4-10.2) mg/dL Magnesium (1.6-2.6) mg/dL Total Bilirubin (0.0-1.0) mg/dL AST (5-37) U/L ALT (0-40) U/L Alkaline Phosphatase (39-117) U/L Troponin I High Sens (<3.5-35.0) ng/L Total Protein (6.5-8.0) g/dL Albumin (3.5-5.0) g/dL Urine Color Yellow Urine Appearance Clear Urine pH 5.5 (5.0-9.0) Ur Specific [place] 1.025 (1.005-1.025) Urine Protein Negative (Neg-Trace) mg/dL Urine Glucose (UA) Negative (Negative) mg/dL Urine Ketones Negative (Negative) mg/dL Urine Blood Negative (Negative) Urine Nitrite Negative (Negative) Ur Leukocyte Esterase Negative (Negative) Urine RBC 0-2 (0-2) /HPF Urine WBC 0-5 (0-5) /HPF Ur Squamous Epith Cells 0-2 (0-2) /HPF Urine Bacteria None Seen (None Seen) Hyaline Casts 0-2 (0-2) /LPF Urine Opiates Screen Not Detected (Not Detect) Urine Fentanyl Screen Not Detected (Not Detect) Ur Barbiturates Screen Not Detected (Not Detect) Ur Phencyclidine Scrn Not Detected (Not Detect) Ur Amphetamines Screen Not Detected (Not Detect) U Benzodiazepines Scrn Not Detected (Not Detect) Urine Cocaine Screen POSITIVE H (Not Detect) U Marijuana (THC) Screen Not Detected (Not Detect) Independent Interpretation I performed an independent interpretation of an: EKG Interpretation: Normal sinus rhythm, HR-93, no STEMI, NC/QRS/QTC is within normal limits. Radiology Impression Radiologist Impression: My interpretation is in agreement with radiology's impression. External Record Review External record reviewed: Prior outpatient labs Discharge Plan Discharge Clinical Impression: Partial seizure, Cocaine use Patient Disposition: Home, Self-Care Instructions: Nonepileptic Seizures (ED) Additional Instructions: 1. Resume all home medications as prescribed 2. I have sent another prescription for your Keppra, I do believe you are out of your medication. Prescriptions: New levetiracetam [Keppra] 250 mg tablet 250 mg PO BID Qty: 60 0RF No Action ondansetron HCl [Zofran] 4 mg tablet 4 mg PO Q8H PRN (Reason: nausea and vomiting) Qty: 14 0RF naproxen 500 mg tablet 500 mg PO BID PRN (Reason: pain) Qty: 10 0RF oxycodone 5 mg tablet 5 mg PO BID PRN (Reason: pain) Qty: 10 0RF cyclobenzaprine 10 mg tablet 10 mg PO Q8H Qty: 14 0RF ibuprofen 800 mg tablet 800 mg PO Q8H PRN (Reason: pain) Qty: 14 0RF Referrals: Rashaun Calderón MD [Primary Care Provider] - Tony Escobedo MD [Physician] -
[2023-01-29 18:41] LABS: MANUAL DIFF FLAG NO
[2023-01-29 18:55] LABS: Basophils Absolute Auto 0.1 X10*3/uL (0.0-0.2); Basophils Percent Auto 0.4 % (0-2); Eosinophils Absolute Auto 0.2 X10*3/uL (0.0-0.4); Eosinophils Percent Auto 1.4 % (0-4); Hematocrit 44.9 % (42.0-52.0); Hemoglobin 14.7 g/dl (14.0-18.0); Imm Gran Abs Auto 0.05 X10*3/uL (0.00-0.03); Imm Gran Pct Auto 0.4 % (0.0-0.4); Lymphocytes Absolute Auto 3.1 X10*3/uL (1.2-4.9); Lymphocytes Percent Auto 23.6 % (20-40); Mean Corpuscular HGB Conc 32.7 g/dl (31.0-36.0); Mean Corpuscular Hemoglobin 27.9 pg (27.0-33.0); Mean Corpuscular Volume 85.2 fL (80.0-98.0); Mean Platelet Volume 12.3 fL (9.4-12.4); Monocytes Absolute Auto 0.8 X10*3/uL (0.1-1.2); Monocytes Percent Auto 5.9 % (2-11); Neutrophils Percent Auto 68.3 % (45-73); Platelet Count 216 X10*3/uL (160-400); Red Blood Count 5.27 X10*6/uL (4.60-5.80); Red Cell Distribution Width 12.4 % (11.0-16.0); White Blood Count 13.1 X10*3/uL (4.8-10.8)
[2023-01-29 18:57] LABS: Partial Thromboplastin Time 40.5 SEC (26.0-36.4)
[2023-01-29 19:01] LABS: Alanine Aminotransferase 22 U/L (0-40); Albumin Level 4.7 g/dL (3.5-5.0); Alkaline Phosphatase 58 U/L (39-117); Anion Gap 15 (12-20); Aspartate Amino Transferase 23 U/L (5-37); Bilirubin Total 0.8 mg/dL (0.0-1.0); Blood Urea Nitrogen 12 mg/dL (9-16); Calcium 9.9 mg/dL (8.4-10.2); Carbon Dioxide 26 mmol/L (22-29); Chloride 103 mmol/L (96-108); Creatinine Clr Calc Pharmacy 78.2; Estimated Glomerular Filt Rate > 60; Glucose Random 110 mg/dL (60-115); Potassium 3.8 mmol/L (3.3-5.1); Sodium 140 mmol/L (135-145); Total Protein 7.8 g/dL (6.5-8.0)
[2023-01-29 19:10] LABS: Troponin-I High Sensitivity < 2.7 ng/L (<3.5-35.0)
--- NOTE | 2023-01-29 21:36 | PC.NURSE ---
Patient in bed with eyes closed patient vitals are stable patient have no pain patient vitals are stable patient will continue to be monitored for safety patient was concerned about food doctor was notified patient is not able to eat at this time patient encouraged to give a urine specimen
[2023-01-29 22:36] LABS: Appearance Urine Clear; Color Urine Yellow; Glucose Urine UA Negative (Negative); Leukocyte Esterase Urine Negative (Negative); Nitrite Urine Negative (Negative); PH 5.5 (5.0-9.0); Specific Gravity - Urine 1.025 (1.005-1.025); Urine Blood Negative (Negative); Urine Ketones Negative (Negative); Urine Protein Negative (Neg-Trace)
[2023-01-29 22:41] LABS: Bacteria Urine None Seen (None Seen); Hyaline Casts Urine 0-2 /LPF (0-2); RBC Urine 0-2 /HPF (0-2); Squamous Epithelial Cell Urine 0-2 /HPF (0-2); WBC Urine 0-5 /HPF (0-5)
[2023-01-29 22:55] LABS: Amphetamine Screen Urine Not Detected (Not Detect); Barbiturates, Urine Not Detected (Not Detect); Benzodiazepines Screen Urine Not Detected (Not Detect); Cannabinoid Screen Urine Not Detected (Not Detect); Cocaine Screen Urine POSITIVE (Not Detect); Fentanyl, urine Not Detected (Not Detect); Opiate Screen Urine Not Detected (Not Detect); Phencyclidine Screen Urine Not Detected (Not Detect)
[2023-01-29 23:44] LABS: Thyroid Stimulating Hormone 0.41 uIU/mL (0.32-4.0)
[2023-01-31 04:28] LABS: Prolactin 4.7 ng/mL (2.0-18.0)
[2023-02-02 19:32] LABS: Levetiracetam Keppra <2.0 mcg/mL (6.0-46.0)
== END 2023-01-29 23:57 | disposition home or self-care (01) ==
PROVIDERS: Physician Assistant; Emergency Provider Student in an Organized Health Care Education/Training Program; PCP Internal Medicine
DX: R56.9 Unspecified convulsions (principal); F14.90 Cocaine use, unspecified, uncomplicated; R55 Syncope and collapse; Z79.899 Other long term (current) drug therapy
CPT/HCPCS: 36415; 71046; 80053; 80177; 80307; 81001; 83735; 84146; 84443; 84484; 85025; 85610; 85730; 93005; 99283; 99284; 99285

== ENCOUNTER 2023-07-02 16:48 | Emergency (ER) | payer MEDICAID, SELFPAY ==
[2023-07-02 17:40] VITALS: BP 148/88; PULSE 91; RESP 18; TEMP 36.8; O2SAT 100; BMI 31.2
--- NOTE | 2023-07-02 17:40 | ED_ITS ---
HPI - General Adult General Chief complaint: General Medical Stated complaint: needs refill on seizure meds Time Seen by Provider: 07/02/23 17:51 Source: patient and RN notes reviewed Mode of arrival: ambulatory Limitations: no limitations History of Present Illness HPI narrative: This is a 42-year-old male, with a history of seizures on Keppra, presenting to the emergency department for seizure medication refill. Patient states that his seizures have been well controlled on Keppra. His last dose was this morning and ran out. He is feeling well. No current complaints. He has a neurology appointment mid June. No other complaints or concerns at this time. MD complaint: Medication refill Relieving factors: none Exacerbating factors: none Associated symptoms: denies other symptoms Treatments prior to arrival: none Related Data Previous Rx's Medication Instructions Recorded naproxen 500 mg tablet 500 mg PO BID PRN pain #10 tabs 02/01/21 ondansetron HCl 4 mg tablet 4 mg PO Q8H PRN nausea and 02/01/21 (Zofran) vomiting #14 tabs oxycodone 5 mg tablet 5 mg PO BID PRN pain #10 tabs 02/01/21 cyclobenzaprine 10 mg tablet 10 mg PO Q8H #14 tabs 05/10/22 ibuprofen 800 mg tablet 800 mg PO Q8H PRN pain #14 tabs 05/10/22 levetiracetam 250 mg tablet 250 mg PO BID #60 tabs 01/29/23 (Keppra) levetiracetam 250 mg tablet 250 mg PO BID 30 days #60 tabs 07/02/23 (Keppra) Allergies Allergy/AdvReac Type Severity Reaction Status Date / Time No Known Allergies Allergy Verified 01/29/23 18:08 Review of Systems Review of Systems: Yes all other systems are reviewed and are negative Constitutional: Constitutional: Reports as per [facility] Past Medical History Attestation statement: The following information was validated with the patient. Medical History Seizure Thyroid cancer Surgical History H/O thyroidectomy Social History Social History Alcohol intake: never Patient Tobacco Use Status: Current everyday Tobacco user Advance Directives: No Advance Directives Information Provided: No Physical Exam ED Vital Signs: Vital Signs - 24 hr 07/02/23 17:40 Temperature 98.2 F Pulse Rate 91 Respiratory Rate 18 Blood Pressure 148/88 H Pulse Oximetry 100 Oxygen Delivery Method Room Air BMI result Body Mass Index 31.2 Const General: cooperative, comfortable and no acute distress Orientation/consciousness: patient oriented x3 Limitations: no limitations HENMT Head: Yes normal to inspection, Yes normocephalic and Yes atraumatic Ears: hearing grossly normal bilaterally General nose exam: Normal external nose present Face and sinus: Yes normal facial exam Mouth: Normal oral and palatal mucosa present, oropharynx normal and moist mucous membranes Throat: Yes posterior oropharynx normal Eyes General: appearance normal, both eyes and all related structures Eyelids: Yes eyelids normal Conjunctivae: conjunctivae normal Sclerae: sclerae normal Pupils: Equal, round and reactive pupils present EOM: EOMs intact bilaterally Neck Neck: Yes normal visual inspection, Yes full ROM and Yes no lymphadenopathy Lymphatic: no lymphadenopathy noted Chest Chest palpation & inspection: normal inspection of the chest Resp Effort & Inspection: normal respiratory effort and able to speak in complete sentences Auscultation: clear to auscultation bilaterally, no crackles, no rales, no rhonchi and no wheezes Cardio Rate: regular rate Rhythm: regular rhythm Heart sounds: S1 normal heart sound present and S2 normal heart sound present GI Inspection: Yes normal to inspection Skin General skin exam: no rashes or lesions noted Trauma: no lacerations or abrasions Wounds: no wounds Neuro General: patient oriented x3 and moves all extremities Cranial nerves: Yes Equal, round and reactive pupils present Extrem General: Yes normal to inspection Right upper extremity: normal to inspection Left upper extremity: normal to inspection Right lower extremity: normal to inspection Left lower extremity: normal to inspection Medical Decision Making Medical Decision Making MDM Narrative: This is a 42-year-old male presenting to the emergency department for medication refill. On arrival, vital signs within normal limits. Patient has appointment with neurologist in mid June. He has not had any seizure-like activity and is feeling well today. Medication refilled for 30 days. Educated on return precautions. Patient understands and agrees with plan. Patient stable for discharge. Differential Diagnosis Differential Diagnoses: The differential diagnosis associated with the presentation includes Medication refill, seizure disorder, wellness check Discharge Plan Discharge Clinical Impression: Medication refill Patient Disposition: Home, Self-Care Instructions: Medicine Refill (ED) Additional Instructions: Please take your prescribed medication as directed. Follow-up with your neurologist, Dr. Escobedo. Prescriptions: New levetiracetam [Keppra] 250 mg tablet 250 mg PO BID 30 Days Qty: 60 0RF No Action ondansetron HCl [Zofran] 4 mg tablet 4 mg PO Q8H PRN (Reason: nausea and vomiting) Qty: 14 0RF naproxen 500 mg tablet 500 mg PO BID PRN (Reason: pain) Qty: 10 0RF oxycodone 5 mg tablet 5 mg PO BID PRN (Reason: pain) Qty: 10 0RF cyclobenzaprine 10 mg tablet 10 mg PO Q8H Qty: 14 0RF ibuprofen 800 mg tablet 800 mg PO Q8H PRN (Reason: pain) Qty: 14 0RF levetiracetam [Keppra] 250 mg tablet 250 mg PO BID Qty: 60 0RF Interventions: ED Discharge Assessment Last Done: 07/02/23 18:04 Discharge Date/Time: 07/02/23 18:11
== END 2023-07-02 18:11 | disposition home or self-care (01) ==
PROVIDERS: Emergency Provider Emergency Medicine; PCP Internal Medicine
DX: Z76.0 Encounter for issue of repeat prescription (principal); Z79.899 Other long term (current) drug therapy; F17.200 Nicotine dependence, unspecified, uncomplicated; Z71.6 Tobacco abuse counseling
CPT/HCPCS: 99282; 99283

== ENCOUNTER 2023-09-22 08:54 | Outpatient (REF) | payer MEDICAID, SELFPAY ==
[2023-09-22 09:17] LABS: MANUAL DIFF FLAG NO
[2023-09-22 09:50] LABS: Basophils Percent Auto 0.4 % (0-2); Eosinophils Absolute Auto 0.1 X10*3/uL (0.0-0.4); Eosinophils Percent Auto 1.3 % (0-4); Hematocrit 46.4 % (42.0-52.0); Imm Gran Abs Auto 0.04 X10*3/uL (0.00-0.03); Imm Gran Pct Auto 0.4 % (0.0-0.4); Lymphocytes Absolute Auto 2.2 X10*3/uL (1.2-4.9); Lymphocytes Percent Auto 23.2 % (20-40); Mean Corpuscular HGB Conc 32.3 g/dl (31.0-36.0); Mean Corpuscular Hemoglobin 27.4 pg (27.0-33.0); Mean Corpuscular Volume 84.8 fL (80.0-98.0); Mean Platelet Volume 12.7 fL (9.4-12.4); Monocytes Absolute Auto 1.1 X10*3/uL (0.1-1.2); Monocytes Percent Auto 11.1 % (2-11); Neutrophils Percent Auto 63.6 % (45-73); Platelet Count 165 X10*3/uL (160-400); Red Blood Count 5.47 X10*6/uL (4.60-5.80); Red Cell Distribution Width 12.8 % (11.0-16.0); White Blood Count 9.5 X10*3/uL (4.8-10.8)
[2023-09-22 10:25] LABS: Alanine Aminotransferase 25 U/L (0-40); Albumin Level 4.7 g/dL (3.5-5.0); Alkaline Phosphatase 57 U/L (39-117); Anion Gap 11 (12-20); Aspartate Amino Transferase 24 U/L (5-37); Bilirubin Total 0.3 mg/dL (0.0-1.0); Blood Urea Nitrogen 18 mg/dL (9-16); Calcium 9.6 mg/dL (8.4-10.2); Carbon Dioxide 27 mmol/L (22-29); Chloride 105 mmol/L (96-108); Cholesterol 154 mg/dL (<200); Estimated Glomerular Filt Rate > 60; Glucose Random 96 mg/dL (60-115); HDL Cholesterol 38 mg/dL (>40); LDL Cholesterol Calculated 96 mg/dL (<100); Potassium 4.2 mmol/L (3.3-5.1); Sodium 139 mmol/L (135-145); Total Protein 7.9 g/dL (6.5-8.0); Triglycerides 101 mg/dL (<150)
[2023-09-22 10:41] LABS: Thyroid Stimulating Hormone 5.63 uIU/mL (0.32-4.0)
== END 2023-09-22 08:55 | disposition home or self-care (01) ==
LOC: HO.LAB 08:54
PROVIDERS: PCP Internal Medicine; Visit Provider Internal Medicine
DX: Z00.00 Encounter for general adult medical examination without abnormal findings (principal); E89.0 Postprocedural hypothyroidism; F41.8 Other specified anxiety disorders; G40.109 Localization-related (focal) (partial) symptomatic epilepsy and epileptic syndromes with simple partial seizures, not intractable, without status epilepticus; H18.6 Keratoconus; I10 Essential (primary) hypertension; Z72.0 Tobacco use
CPT/HCPCS: 36415; 80053; 80061; 84443; 85025

== ENCOUNTER 2023-09-30 20:24 | Emergency (ER) | payer MEDICAID, SELFPAY ==
[2023-09-30 20:44] VITALS: BP 142/90; PULSE 98; RESP 18; TEMP 36.8; O2SAT 97; BMI 32.9
--- NOTE | 2023-09-30 20:45 | ED.GENADULT ---
HPI - General Adult General Chief complaint: General Medical Stated complaint: lower back pain/dizzy/blurred vision Time Seen by Provider: 10/01/23 03:27 History of Present Illness HPI narrative: Patient is a 42-year-old male with a history of keratoconus. Patient says that he has baseline very poor vision and has been prescribed contact lenses. He tends to only wear the contact lens in his right eye because he finds the left eye contact lens is uncomfortable. He says that he was diagnosed with keratoconus about 20 years ago. He has been getting his vision care through [facility] in [place]. However he says that the practitioner at that office has recommended that he see a specialist. The patient says that 2 days ago he started having intermittent flashes in his vision. The patient was not certain whether this was binocular or monocular. He thought perhaps it was mostly from the left eye but he was not sure. He describes the phenomenon as ?seeing stars. ? he also felt that he was seeing colors. This phenomenon was very intermittent. Symptoms began at work on Friday. He works detailing cars. He is also complaining of low back pain with pains in his right arm and his right leg. The patient has a history of a seizure disorder. He had a seizure in 2016. He has been on Keppra since then. He has not had another seizure since then. Related Data Previous Rx's Medication Instructions Recorded naproxen 500 mg tablet 500 mg PO BID PRN pain #10 tabs 02/01/21 ondansetron HCl 4 mg tablet 4 mg PO Q8H PRN nausea and 02/01/21 (Zofran) vomiting #14 tabs oxycodone 5 mg tablet 5 mg PO BID PRN pain #10 tabs 02/01/21 cyclobenzaprine 10 mg tablet 10 mg PO Q8H #14 tabs 05/10/22 ibuprofen 800 mg tablet 800 mg PO Q8H PRN pain #14 tabs 05/10/22 levetiracetam 250 mg tablet 250 mg PO BID #60 tabs 01/29/23 (Keppra) levetiracetam 250 mg tablet 250 mg PO BID 30 days #60 tabs 07/02/23 (Keppra) Allergies Allergy/AdvReac Type Severity Reaction Status Date / Time No Known Allergies Allergy Verified 01/29/23 18:08 Review of Systems Review of Systems: Yes all other systems are reviewed and are negative [facility] Past Medical History Medical History Seizure Thyroid cancer Surgical History H/O thyroidectomy Social History Social History Alcohol intake: never Patient Tobacco Use Status: Current everyday Tobacco user Advance Directives: No Advance Directives Information Provided: No Physical Exam ED Vital Signs: Vital Signs - 24 hr 09/30/23 20:44 10/01/23 03:03 Temperature 98.2 F 97.6 F Pulse Rate 98 88 Respiratory Rate 18 16 Blood Pressure 142/90 H 123/84 Pulse Oximetry 97 98 Oxygen Delivery Method Room Air Room Air BMI result Body Mass Index 32.9 Const Other: The patient is awake and alert. He looks tired but did not seem acutely ill or in distress otherwise. HENMT Other: The face is symmetrical. Mucous membranes are moist. The pharynx is normal. Eyes Other: Pupils are round, equal, and reactive to light. Extraocular movements are intact. No conjunctival injection. The patient has a contact lens in the right eye but none in the left eye. Visual lazaro are intact to confrontation in both eyes. Visual acuity in the right eye (with contact lens) is 20/50. Visual acuity in the left eye (uncorrected, no contact lens) is 20/200. I was unable to well visualize the retina with the ophthalmoscope. With ultrasound of the left eye I appreciated no abnormalities to the retina or vitreous. Neck Other: Neck is supple, no adenopathy Resp Effort & Inspection: normal respiratory effort Auscultation: clear to auscultation bilaterally Cardio Rate: regular rate Rhythm: regular rhythm Heart sounds: S1 normal heart sound present and S2 normal heart sound present Skin Other: Skin was dry and unremarkable. Neuro Other: The patient is awake and alert. Pupils are round equal, extraocular movements are intact, visual lazaro are intact to confrontation. Face is symmetrical. Speech is clear. The patient has normal strength and coordination and sensation in his extremities. He has a normal gait. He has very poor vision in the left eye but he does not have his contact lens in the left eye. His right eye vision, in which he has the contact lens, has a visual acuity of 20/50. 1+ reflexes at the knees and ankles. Extrem Other: No peripheral edema. No calf swelling or tenderness. Moving his extremities easily. He walked without a limp. Course Course Course Narrative: This is a rapid medical exam. Deferred additional HPI, ROS, PE to primary provider. 42yo male with history of seizures, anxiety attacks, thyroid cancer here with complaints of back pain, swelling in all his limbs, headache described as pressure, dizziness, nausea, visual changes in both eyes since yesterday. Patient most concerned with his lower back pain Will obtain labs, EKG, viral testing VSS Medical Decision Making Medical Decision Making MDM Narrative: The patient is a 42-year-old male who says that he has had intermittent blurry vision and ?seeing stars? over the past couple of days. The patient did not really have a sense that this phenomenon was happening only in one eye. The patient's description of the visual symptoms was quite vague. The patient has a history of keratoconus and sees an rotor casting machine setup operator in [place]. He has contact lenses but only wears the contact lens in the right eye. Given the vague nature of the patient's description of his symptoms I did not have a very high suspicion for definite acute ophthalmological emergency. He does have very poor vision in the left eye which does not have a contact lens but the patient implies that this is his baseline. His right eye, in which he has a contact lens has vision of 20/50. Visual lazaro are intact to confrontation. No visual field deficit. Bedside ultrasound revealed nothing to suggest a vitreous problem or retinal detachment. Overall I felt the patient not require any acute intervention. Nevertheless I think the patient should be seen soon by an box storage worker or possibly his regular rotor casting machine setup operator. He was given the name and number of Dr. Padilla and advised to make follow-up appointment in the morning. Lab Data 09/30/23 21:04 09/30/23 21:03 Labs: Lab Results 09/30/23 09/30/23 09/30/23 Range/Units 21:03 21:04 21:11 WBC 15.0 H (4.8-10.8) X10*3/uL RBC 5.32 (4.60-5.80) X10*6/uL Hgb 14.8 (14.0-18.0) g/dl Hct 44.9 (42.0-52.0) % MCV 84.4 (80.0-98.0) fL MCH 27.8 (27.0-33.0) pg MCHC 33.0 (31.0-36.0) g/dl RDW 12.7 (11.0-16.0) % Plt Count 189 (160-400) X10*3/uL MPV 12.7 H (9.4-12.4) fL Immature Gran % (Auto) 0.5 H (0.0-0.4) % Neut % (Auto) 64.7 (45-73) % Lymph % (Auto) 25.5 (20-40) % Bucks % (Auto) 7.4 (2-11) % Eos % (Auto) 1.6 (0-4) % Baso % (Auto) 0.3 (0-2) % Lymph # (Auto) 3.8 (1.2-4.9) X10*3/uL Bucks # (Auto) 1.1 (0.1-1.2) X10*3/uL Eos # (Auto) 0.2 (0.0-0.4) X10*3/uL Baso # (Auto) 0.1 (0.0-0.2) X10*3/uL Abs Immat Gran (auto) 0.08 H (0.00-0.03) X10*3/uL Absolute Neuts (auto) 9.7 H (2.0-8.3) x10*3/uL Absolute Nucleated RBC 0.000 (0.0-0.012) X10*3/uL Nucleated RBC % (auto) 0.0 (0.0-0.2) /100WBC PT 11.5 (11.1-13.3) SEC INR 0.9 (0.9-1.1) Sodium 140 (135-145) mmol/L Potassium 3.8 (3.3-5.1) mmol/L Chloride 105 (96-108) mmol/L Carbon Dioxide 26 (22-29) mmol/L Anion Gap 13 (12-20) BUN 15 (9-16) mg/dL Creatinine 1.15 (0.5-1.4) mg/dL Estim Creat Clear Calc 76.0 Estimated GFR > 60 Random Glucose 89 (60-115) mg/dL Calcium 9.5 (8.4-10.2) mg/dL Magnesium 2.0 (1.6-2.6) mg/dL Total Bilirubin 0.4 (0.0-1.0) mg/dL Direct Bilirubin 0.1 (0.0-0.5) mg/dL AST 25 (5-37) U/L ALT 27 (0-40) U/L Alkaline Phosphatase 56 (39-117) U/L Total Creatine Kinase 197 H (38-174) U/L Total Protein 8.0 (6.5-8.0) g/dL Albumin 4.4 (3.5-5.0) g/dL Urine Color Yellow Urine Appearance Clear Urine pH 6.5 (5.0-9.0) Ur Specific [place] >= 1.030 H (1.005-1.025) Urine Protein Negative (Neg-Trace) mg/dL Urine Glucose (UA) Negative (Negative) mg/dL Urine Ketones Trace (Negative) mg/dL Urine Blood Negative (Negative) Urine Nitrite Negative (Negative) Ur Leukocyte Esterase Negative (Negative) Urine Opiates Screen Not Detected (Not Detect) Urine Fentanyl Screen Not Detected (Not Detect) Ur Barbiturates Screen Not Detected (Not Detect) Ur Phencyclidine Scrn Not Detected (Not Detect) Ur Amphetamines Screen Not Detected (Not Detect) U Benzodiazepines Scrn Not Detected (Not Detect) Urine Cocaine Screen Not Detected (Not Detect) U Marijuana (THC) Screen Not Detected (Not Detect) COVID-19 (BETTINA) Negative (Negative) COVID-19 Clin Com See Note Influenza Type A (ROSS) Negative (Negative) Influenza Type B (ROSS) Negative (Negative) Influenza A & B Note See Note Discharge Plan Discharge Clinical Impression: Photopsia, Low back pain, Keratoconus Patient Disposition: Home, Self-Care Additional Instructions: I think it is very important that you follow-up with an wardrobe specialist. I have provided the name and number of the local box storage worker, Dr. Padilla. Have any delay in getting into see Dr. Padilla I would contact your regular I office in [place], [facility], to see if they can see you on an urgent basis. With regard to your low back pain I would recommend using ibuprofen and following up with your regular doctor. You may also use acetaminophen (Tylenol). Return to the emergency room if worse Prescriptions: No Action ondansetron HCl [Zofran] 4 mg tablet 4 mg PO Q8H PRN (Reason: nausea and vomiting) Qty: 14 0RF naproxen 500 mg tablet 500 mg PO BID PRN (Reason: pain) Qty: 10 0RF oxycodone 5 mg tablet 5 mg PO BID PRN (Reason: pain) Qty: 10 0RF cyclobenzaprine 10 mg tablet 10 mg PO Q8H Qty: 14 0RF ibuprofen 800 mg tablet 800 mg PO Q8H PRN (Reason: pain) Qty: 14 0RF levetiracetam [Keppra] 250 mg tablet 250 mg PO BID 30 Days Qty: 60 0RF levetiracetam [Keppra] 250 mg tablet 250 mg PO BID Qty: 60 0RF Referrals: Kelley Carmichael MD [Primary Care Provider] - (Low back pain) Erasto Padilla [Physician] - (Visual flashes, history of keratoconus) Interventions: ED Discharge Assessment Last Done: 10/01/23 04:14 Discharge Date/Time: 10/01/23 04:15
--- NOTE | 2023-09-30 20:48 | ECG_ITS ---
Test Reason : chest pain Blood Pressure : / mmHG Vent. Rate : 097 BPM Atrial Rate : 097 BPM P-R Int : 142 ms QRS Dur : 094 ms QT Int : 334 ms P-R-T Axes : 044 005 013 degrees QTc Int : 424 ms Normal sinus rhythm Normal ECG When compared with ECG of 29-JAN-2023 18:25, No significant change was found Referred By: Yohana Daniel Electronically Signed By:LENO ALMONTE
[2023-09-30 21:22] LABS: MANUAL DIFF FLAG NO
[2023-09-30 21:26] LABS: Basophils Absolute Auto 0.1 X10*3/uL (0.0-0.2); Basophils Percent Auto 0.3 % (0-2); Eosinophils Absolute Auto 0.2 X10*3/uL (0.0-0.4); Eosinophils Percent Auto 1.6 % (0-4); Hematocrit 44.9 % (42.0-52.0); Hemoglobin 14.8 g/dl (14.0-18.0); Imm Gran Abs Auto 0.08 X10*3/uL (0.00-0.03); Imm Gran Pct Auto 0.5 % (0.0-0.4); Lymphocytes Absolute Auto 3.8 X10*3/uL (1.2-4.9); Lymphocytes Percent Auto 25.5 % (20-40); Mean Corpuscular Hemoglobin 27.8 pg (27.0-33.0); Mean Corpuscular Volume 84.4 fL (80.0-98.0); Mean Platelet Volume 12.7 fL (9.4-12.4); Monocytes Absolute Auto 1.1 X10*3/uL (0.1-1.2); Monocytes Percent Auto 7.4 % (2-11); Neutrophils Absolute Auto 9.7 x10*3/uL (2.0-8.3); Neutrophils Percent Auto 64.7 % (45-73); Platelet Count 189 X10*3/uL (160-400); Red Blood Count 5.32 X10*6/uL (4.60-5.80); Red Cell Distribution Width 12.7 % (11.0-16.0)
[2023-09-30 21:27] LABS: Appearance Urine Clear; Color Urine Yellow; Glucose Urine UA Negative (Negative); PH 6.5 (5.0-9.0)
[2023-09-30 21:28] LABS: Leukocyte Esterase Urine Negative (Negative); Nitrite Urine Negative (Negative); Specific Gravity - Urine >= 1.030 (1.005-1.025); Urine Blood Negative (Negative); Urine Ketones Trace mg/dL (Negative); Urine Protein Negative (Neg-Trace)
[2023-09-30 21:33] LABS: INTERNATIONAL NORM RATIO 0.9 (0.9-1.1); Prothrombin Time 11.5 SEC (11.1-13.3)
[2023-09-30 21:39] LABS: COVID-19 Test Negative (Negative); IDNOW Serial# 152EDE1D
[2023-09-30 21:40] LABS: IDNOW Serial# 9DB6401D; Influenza A Negative (Negative); Influenza B2 Negative (Negative)
[2023-09-30 21:44] LABS: Alanine Aminotransferase 27 U/L (0-40); Albumin Level 4.4 g/dL (3.5-5.0); Alkaline Phosphatase 56 U/L (39-117); Anion Gap 13 (12-20); Aspartate Amino Transferase 25 U/L (5-37); Bilirubin Direct 0.1 mg/dL (0.0-0.5); Bilirubin Total 0.4 mg/dL (0.0-1.0); Blood Urea Nitrogen 15 mg/dL (9-16); Calcium 9.5 mg/dL (8.4-10.2); Carbon Dioxide 26 mmol/L (22-29); Chloride 105 mmol/L (96-108); Estimated Glomerular Filt Rate > 60; Glucose Random 89 mg/dL (60-115); Potassium 3.8 mmol/L (3.3-5.1); Sodium 140 mmol/L (135-145)
[2023-10-01 03:03] VITALS: BP 123/84; PULSE 88; RESP 16; TEMP 36.4; O2SAT 98
[2023-10-01 04:31] LABS: Amphetamine Screen Urine Not Detected (Not Detect); Barbiturates, Urine Not Detected (Not Detect); Benzodiazepines Screen Urine Not Detected (Not Detect); Cannabinoid Screen Urine Not Detected (Not Detect); Cocaine Screen Urine Not Detected (Not Detect); Fentanyl, urine Not Detected (Not Detect); Opiate Screen Urine Not Detected (Not Detect); Phencyclidine Screen Urine Not Detected (Not Detect)
== END 2023-10-01 04:15 | disposition home or self-care (01) ==
PROVIDERS: Nurse Practitioner Family; Emergency Provider Emergency Medicine; PCP Internal Medicine
DX: H53.19 Other subjective visual disturbances (principal); H18.603 Keratoconus, unspecified, bilateral; M54.50 Low back pain, unspecified; R56.9 Unspecified convulsions; Z79.899 Other long term (current) drug therapy
CPT/HCPCS: 36415; 80048; 80076; 80307; 81003; 82550; 83735; 85025; 85610; 87502; 87635; 93005; 99284

== ENCOUNTER → 2023-09-30 20:48 | Outpatient (BNV) | payer MEDICAID, SELFPAY | PROVIDERS: Emergency Provider Emergency Medicine; PCP Internal Medicine; Visit Provider Internal Medicine | DX: R07.9 Chest pain, unspecified (principal) | CPT/HCPCS: 93010 ==

== ENCOUNTER 2024-01-09 08:31 | Outpatient (REF) | payer MEDICAID, SELFPAY ==
[2024-01-09 10:00] LABS: Alanine Aminotransferase 30 U/L (0-40); Albumin Level 4.4 g/dL (3.5-5.0); Alkaline Phosphatase 48 U/L (39-117); Anion Gap 13 (12-20); Aspartate Amino Transferase 26 U/L (5-37); Bilirubin Total 0.7 mg/dL (0.0-1.0); Blood Urea Nitrogen 11 mg/dL (9-16); Calcium 9.3 mg/dL (8.4-10.2); Carbon Dioxide 26 mmol/L (22-29); Chloride 105 mmol/L (96-108); Estimated Glomerular Filt Rate > 60; Glucose Random 100 mg/dL (60-115); Potassium 4.2 mmol/L (3.3-5.1); Sodium 140 mmol/L (135-145); Total Protein 7.6 g/dL (6.5-8.0)
[2024-01-09 10:17] LABS: Thyroid Stimulating Hormone 0.54 uIU/mL (0.32-4.0)
== END 2024-01-09 08:32 | disposition home or self-care (01) ==
LOC: HO.LAB 08:31
PROVIDERS: PCP Internal Medicine; Visit Provider Internal Medicine
DX: R11.0 Nausea (principal); R14.0 Abdominal distension (gaseous); E89.0 Postprocedural hypothyroidism; H18.6 Keratoconus; I10 Essential (primary) hypertension; Z72.0 Tobacco use
CPT/HCPCS: 36415; 80053; 84443

== ENCOUNTER 2025-01-28 09:36 | Outpatient (REF) | payer MEDICAID, SELFPAY ==
--- OUTSIDE RECORDS SUMMARY | 2025-01-28 10:13 | XMS_ITS | Clinical Summary ---
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 Name Role Phone Unavailable Primary Care Provider Unavailabl e Social History Tobacco Use Types Packs/Day Years Used Date Smoking Tobacco: Never Assessed Sex and Gender Information Value Date Recorded Sex Assigned at Not on file Legal Sex Male 4:50 AM EST Gender Identity Not on file Sexual Orientation Not on file Plan of Treatment Health Maintenance Due Date Last Done Comments DTaP,Tdap,and Td Vaccines (1 - Tdap) 2001 Hepatitis B Vaccines (1 of 3 - 19+ 3-dose series) 2001 COVID-19 Vaccine (2023-2 5 season) 2024 Influenza Vaccine (Season Ended) 2025 HIB Vaccines Aged Out No longer eligi ble based on patient's age to complete this topic HPV Vaccines Aged Out No longer eligi ble based on patient's age to complete this topic Hepatitis A Vaccines Aged Out No long er eligible based on patient's age to complete this topic IPV Vaccines Aged Out No longer eligi ble based on patient's age to complete this topic MMR Vaccines Aged Out No longer eligi ble based on patient's age to complete this topic Meningococcal ACWY Vaccine Aged Out N o longer eligible based on patient's age to complete this topic Meningococcal B Vaccine Aged Out No l onger eligible based on patient's age to complete this topic Pneumococcal Vaccine: Pediat rics (0 to 5 Years) and At-Risk Patients (6 to 64 Years) Aged Out No longer eligible b ased on patient's age to complete this topic RSV Immunization Patients Un omid 20 months Aged Out No longer eligible b ased on patient's age to complete this topic Varicella Vaccines Aged Out No longer eligible based on patient's age to complete this topic
[2025-01-28 12:55] LABS: Anion Gap 13 (12-20); Thyroid Stimulating Hormone 1.79 uIU/mL (0.32-4.0)
[2025-01-28 13:00] LABS: Alanine Aminotransferase 32 U/L (0-40); Albumin Level 4.4 g/dL (3.5-5.0); Alkaline Phosphatase 56 U/L (39-117); Aspartate Amino Transferase 29 U/L (5-37); Bilirubin Total 0.4 mg/dL (0.0-1.0); Blood Urea Nitrogen 15 mg/dL (9-16); Calcium 9.4 mg/dL (8.4-10.2); Carbon Dioxide 26 mmol/L (22-29); Chloride 104 mmol/L (96-108); Cholesterol 177 mg/dL (<200); Estimated Glomerular Filt Rate > 60; Glucose Random 94 mg/dL (60-115); HDL Cholesterol 34 mg/dL (>40); LDL Cholesterol Calculated 114 mg/dL (<100); Potassium 3.7 mmol/L (3.3-5.1); Sodium 139 mmol/L (135-145); Total Protein 7.6 g/dL (6.5-8.0); Triglycerides 146 mg/dL (<150)
== END 2025-01-28 09:37 | disposition home or self-care (01) ==
LOC: HO.LAB 09:36
PROVIDERS: PCP Internal Medicine; Visit Provider Internal Medicine
DX: E89.0 Postprocedural hypothyroidism (principal); I10 Essential (primary) hypertension; R42 Dizziness and giddiness; Z72.0 Tobacco use
CPT/HCPCS: 36415; 80053; 80061; 84443